=== PATIENT | male | born 1945 | race Hispanic/Latino ===

== ENCOUNTER 2018-05-06 13:05 | Inpatient (IN) | payer MEDICARE ==
[2018-05-05 16:51] LABS: BASOPHILS # (AUTO) 0.1 (0.0-0.1); BASOPHILS % 0.9 % (0.0-1.0); EOSINOPHILS # (AUTO) 0.6 (0.0-0.4); EOSINOPHILS % 6.5 % (0.0-6.0); HEMATOCRIT 39.9 % (38.2-49.6); HEMOGLOBIN 12.8 g/dL (14.0-18.0); LYMPHOCYTES # (AUTO) 2.8 (1.0-3.2); LYMPHOCYTES % 28.6 % (18.0-39.1); MEAN CORPUSCULAR HEMOGLOBIN 25.2 pg (28-32); MEAN CORPUSCULAR HGB CONC 32.1 g/dL (31-35); MEAN CORPUSCULAR VOLUME 78.5 fL (81-99); MONOCYTES # (AUTO) 0.9 (0.2-0.8); MONOCYTES % 9.1 % (4.4-11.3); NEUTROPHILS # (AUTO) 5.4 (2.1-6.9); NEUTROPHILS % 54.6 % (38.7-80.0); PLATELET COUNT 321 x10e3/uL (140-360); RED BLOOD COUNT 5.08 x10e6/uL (4.3-5.7); RED CELL DISTRIBUTION WIDTH 16.3 % (11.7-14.4)
[2018-05-05 17:08] LABS: ALBUMIN 3.3 g/dL (3.5-5.0); ALBUMIN/GLOBULIN RATIO 0.7 (0.8-2.0); ANION GAP 13.9 mmol/L (8-16); CALCIUM 9.2 mg/dL (8.4-10.2); CHOL/HDL RATIO 3.6 (3.9-4.7); CREATININE, SERUM 1.34 mg/dL (0.72-1.25); POTASSIUM 3.9 mmol/L (3.5-5.1)
[2018-05-05 21:06] VITALS: BP 189/91
[~2018-05-06] VITALS: Ht 180.3 cm; Wt 120.7 kg
[2018-05-06] VITALS (15 sets, daily range): BP systolic 169–189; BP diastolic 88–104
[~2018-05-06 13:05] MED LIST: AMLODIPINE BESYL5 MG PO; ATORVASTATIN CA40 MG PO; CRESTOR10 MG PO; DAPAGLIFLOZIN PO; DIGOXIN125 MCG PO; FENOFIBRATE160 MG PO; GLIMEPIRIDE2 MG PO; INSPRA25 MG PO; JARDIANCE PO; LEVEMIR100 UNIT/1 INJ; LISINOPRIL10 MG PO; LISINOPRIL2.5 MG PO; LYRICA75 MG PO; METFORMIN HCL500 M2 PO; METFORMIN HCL500 MG PO; METOCLOPRAMIDE10 MG PO; METOPROLOL SUCC25 MG PO; METOPROLOL TART50 MG PO; NOVOLOG100 UNIT/1 SQ; NOVOLOG100 UNITS1 INJ; OMEPRAZOLE20 M1 PO; ONGLYZA5 MG PO; PRADAXA150 MG PO; Toujeo SQ; XARELTO20 MG PO
[2018-05-06] MEDS ORDERED: DIPHENHYDRAMINE HCL 25 MG CAP ONE (16:09)
[2018-05-06] MEDS ORDERED: ALPRAZOLAM 0.5 MG TAB ONE (16:09)
[2018-05-06] MEDS ORDERED: IOPAMIDOL 370 MG/ML 200 ML INFUS..BTL INJ ONE (18:01)
[2018-05-06] MEDS ORDERED: HEPARIN SOD/SOD CHLORIDE 2,000 ML ONE (18:01)
[2018-05-06] MEDS ORDERED: LIDOCAINE HCL 2% LOCAL 20 ML VIAL ONE (18:01)
[2018-05-06] MEDS ORDERED: FENTANYL CITRATE/PF 100MCG/2 ML INJ ONE (18:06)
[2018-05-06] MEDS ORDERED: MIDAZOLAM HCL 2 MG/2 ML VIAL ONE (18:06)
[2018-05-06] MEDS ORDERED: HEPARIN SOD/SOD CHLORIDE 1,000 ML ONE (18:07)
[2018-05-06] MEDS ORDERED: SODIUM CHLORIDE 0.9% 1000ML 1,000 ML ONE ×2 (18:07→18:08)
[2018-05-06] MEDS ORDERED: NITROGLYCERIN/D5W 200 MCG/ML 250 ML ONE ×2 (18:08→18:29)
[2018-05-06] MEDS ORDERED: HEPARIN SOD (PORCINE) 1000 UNIT/ML 30ML ONE (18:08)
[2018-05-06] MEDS ORDERED: PRASUGREL 10 MG TAB ONE (18:37)
[2018-05-06] MEDS ORDERED: SODIUM CHLORIDE 0.9% 1000ML 1,000 ML IV SCH (19:03)
[2018-05-06] MEDS ORDERED: ONDANSETRON HCL INJ 2 MG/ML VIAL IV PRN (19:15)
[2018-05-06] MEDS ORDERED: ZOLPIDEM TARTRATE 5 MG TAB PO PRN (19:15)
[2018-05-06] MEDS ORDERED: HYDROCODONE/APAP 5MG-325MG TAB PO PRN (19:15)
[2018-05-06] MEDS ORDERED: HYDRALAZINE HCL 20 MG/ML VIAL IV PRN (19:15)
[2018-05-06] MEDS ORDERED: MORPHINE SULFATE 4 MG/ML SYR IV PRN (19:15)
[2018-05-06] MEDS ORDERED: ACETAMINOPHEN 325 MG TAB PO PRN (19:15)
[2018-05-06] MEDS ORDERED: MORPHINE SULFATE 2 MG/ML SYR IV PRN (19:30)
--- NOTE | 2018-05-06 19:32 | Operative Report ---
DATE OF PROCEDURE: May 06, 2018 INDICATIONS: Coronary artery disease. Abnormal stress test. Peripheral arterial disease with claudication of both lower extremities. PROCEDURES PERFORMED: 1. Abdominal aortogram runoff to bilateral lower extremities. 2. Left heart catheterization, selective coronary angiography. 3. PTCA and drug-eluding stent placement to the mid left anterior descending artery. 4. Deployment right groin Minx closure device. COMPLICATIONS: None. RECOMMENDATIONS: 1. Triple anticoagulant therapy for 3 months followed by aspirin and Xarelto for life. 2. Recommendation for staged intervention on bilateral superficial femoral arteries. Access was obtained in the right femoral artery. A 6-Irish sheath is placed. Diagnostic coronary angiogram demonstrated mild disease in the left main, left anterior descending artery, diffuse 30% to 50% stenosis. Mid left anterior descending artery the region of the diagonal artery at 50% to 60% stenosis. Ostium of the diagonal artery, however, had a 90% stenosis. This was a 1.5 mm vessel. Mid left anterior descending artery tubular 90% stenosis. Circumflex and right coronary artery had moderate 30% to 50% stenosis. Abdominal aorta and iliacs were widely patent. However, bilateral femoral arteries occluded in the distal portion. A decision was made to intervene on the left anterior descending artery. The patient received 12,000 units of heparin intravenously with an HCT of 298. The left main was cannulated using an XP 3.5 6-Irish Guidant catheter. A short wire was advanced across the lesion for support. Primary stent with a 2.25 x 12 mm [place] [employer] Synergy Standard 14 atmospheres deployed. No complications. BRANDI-3 flow. Excellent outcome. Right groin repaired using Minx closure device. Patient observed in the hospital overnight. Job#: [id number]
[2018-05-06] MEDS ORDERED: INSULIN GLARGINE SQ SCH (21:00)
[2018-05-06] MEDS ORDERED: SIMVASTATIN 40 MG TAB PO SCH (21:00)
[2018-05-06] MEDS ORDERED: METOPROLOL TARTRATE 50 MG TAB PO ONE (22:00)
[2018-05-06] MEDS ORDERED: PREGABALIN 75 MG CAP PO ONE (22:00)
[2018-05-06] MEDS ORDERED: AMLODIPINE BESYLATE 5 MG TAB PO ONE (22:00)
[2018-05-06] MEDS ORDERED: LISINOPRIL 20 MG TAB PO ONE (22:00)
[2018-05-07] VITALS: BP 185/93
[2018-05-07 04:00] VITALS: BP 167/85
[2018-05-07 06:17] LABS: BASOPHILS # (AUTO) 0.1 (0.0-0.1); BASOPHILS % 1.2 % (0.0-1.0); EOSINOPHILS # (AUTO) 0.6 (0.0-0.4); EOSINOPHILS % 6.4 % (0.0-6.0); HEMATOCRIT 40.4 % (38.2-49.6); HEMOGLOBIN 12.9 g/dL (14.0-18.0); LYMPHOCYTES # (AUTO) 2.8 (1.0-3.2); LYMPHOCYTES % 29.5 % (18.0-39.1); MEAN CORPUSCULAR HEMOGLOBIN 25.1 pg (28-32); MEAN CORPUSCULAR HGB CONC 31.9 g/dL (31-35); MEAN CORPUSCULAR VOLUME 78.8 fL (81-99); MONOCYTES # (AUTO) 0.9 (0.2-0.8); MONOCYTES % 9.4 % (4.4-11.3); NEUTROPHILS % 53.1 % (38.7-80.0); PLATELET COUNT 299 x10e3/uL (140-360); RED BLOOD COUNT 5.13 x10e6/uL (4.3-5.7); RED CELL DISTRIBUTION WIDTH 16.4 % (11.7-14.4)
[2018-05-07 06:46] LABS: ANION GAP 12.8 mmol/L (8-16); BLOOD UREA NITROGEN 19 mg/dL (7-26); BUN/CREATININE RATIO 18 (6-25); CALCIUM 8.7 mg/dL (8.4-10.2); CARBON DIOXIDE 22 mmol/L (22-29); CHLORIDE 106 mmol/L (98-107); CREATININE, SERUM 1.08 mg/dL (0.72-1.25); EST GLOMERULAR FILTRATION RATE > 60 ML/MIN (60-); GLUCOSE 157 mg/dL (74-118); POTASSIUM 3.8 mmol/L (3.5-5.1); SODIUM 137 mmol/L (136-145)
[2018-05-07 08:00] VITALS: BP 161/80
[2018-05-07] MEDS: INSULIN LISPRO 100 UNIT/1 ML 3ML VIAL SQ SCH ×2 (08:00→10:21)
[2018-05-07] MEDS ORDERED: METFORMIN HCL 500 MG TAB CR PO SCH (08:00)
[2018-05-07] MEDS ORDERED: METOCLOPRAMIDE HCL 10 MG TAB PO SCH (08:00)
[2018-05-07] MEDS ORDERED: METOPROLOL TARTRATE 50 MG TAB PO SCH (09:00)
[2018-05-07] MEDS ORDERED: PANTOPRAZOLE SOD 40 MG TABEC PO SCH (09:00)
[2018-05-07] MEDS ORDERED: PREGABALIN 75 MG CAP PO SCH (09:00)
[2018-05-07] MEDS ORDERED: AMLODIPINE BESYLATE 5 MG TAB PO SCH (09:00)
[2018-05-07] MEDS ORDERED: LISINOPRIL 10 MG TAB PO SCH (09:00)
[2018-05-07] MEDS ORDERED: LISINOPRIL 20 MG TAB PO SCH (09:00)
[2018-05-07] MEDS ORDERED: DIGOXIN 0.125 MG TAB PO SCH (09:00)
[2018-05-07] MEDS ORDERED: RIVAROXABAN 20 MG TABLET PO SCH (09:00)
[2018-05-07 09:02] VITALS: BP 161/80
[2018-05-07] MEDS ORDERED: aspirin PO (09:39)
[2018-05-07] MEDS ORDERED: CLOPIDOGREL75 MG PO (09:39)
== END 2018-05-07 10:30 | disposition home or self-care (01) | DRG 247 ==
LOC: CATH LAB 13:05 → MED/SURG 20:31
PROVIDERS: ADMIT Internal Medicine Interventional Cardiology; ATTEND Internal Medicine Interventional Cardiology
PROC: 027034Z Dilation of Coronary Artery, One Artery with Drug-eluting Intraluminal Device, Percutaneous Approach (ICD-10-PCS; principal; 2018-05-06)
PROC: 4A023N7 Measurement of Cardiac Sampling and Pressure, Left Heart, Percutaneous Approach (ICD-10-PCS; 2018-05-06)
PROC: B2111ZZ Fluoroscopy of Multiple Coronary Arteries using Low Osmolar Contrast (ICD-10-PCS; 2018-05-06)
PROC: B41D1ZZ Fluoroscopy of Aorta and Bilateral Lower Extremity Arteries using Low Osmolar Contrast (ICD-10-PCS; 2018-05-06)
DX: I70.213 Atherosclerosis of native arteries of extremities with intermittent claudication, bilateral legs (principal); I25.10 Atherosclerotic heart disease of native coronary artery without angina pectoris; I10 Essential (primary) hypertension; I48.0 Paroxysmal atrial fibrillation; Z79.01 Long term (current) use of anticoagulants
CPT/HCPCS: 36140; 36415; 75630; 77001; 80048; 80053; 80061; 82948; 85025; 93458; C1769; J1644; J2001; J2250; J7030; Q9967

== ENCOUNTER → 2018-05-19 | Day surgery (SDC) | payer MEDICARE ==
[~2018-05-19] MED LIST changes: +ALPRAZOLAM 0.5 MG TAB ONE; +CLOPIDOGREL75 MG PO; +DIPHENHYDRAMINE HCL 25 MG CAP ONE; +FENTANYL CITRATE/PF 100MCG/2 ML INJ ONE; +HEPARIN SOD (PORCINE) 1000 UNIT/ML 30ML ONE; +HEPARIN SOD/SOD CHLORIDE 2,000 ML ONE; +IOPAMIDOL 300MG/ML 100 ML INFUS..BTL IV ONE; +LIDOCAINE HCL 2% LOCAL 20 ML VIAL ONE; +MIDAZOLAM HCL 2 MG/2 ML VIAL ONE; +NITROGLYCERIN/D5W 200 MCG/ML 250 ML ONE; +PROTAMINE SULFATE 10 MG/ML 5 ML VIAL ONE; +SODIUM CHLORIDE 0.9% 1000ML 1,000 ML ONE; +SODIUM CHLORIDE 0.9% 50ML 50 ML ONE; +VERAPAMIL HCL 2.5 MG/ML 2 ML VIAL ONE; +aspirin PO
[2018-05-19 13:00] LABS: BASOPHILS # (AUTO) 0.1 (0.0-0.1); BASOPHILS % 1.1 % (0.0-1.0); EOSINOPHILS # (AUTO) 0.6 (0.0-0.4); EOSINOPHILS % 5.8 % (0.0-6.0); HEMATOCRIT 40.3 % (38.2-49.6); HEMOGLOBIN 12.8 g/dL (14.0-18.0); LYMPHOCYTES # (AUTO) 3.6 (1.0-3.2); LYMPHOCYTES % 35.1 % (18.0-39.1); MEAN CORPUSCULAR HGB CONC 31.8 g/dL (31-35); MEAN CORPUSCULAR VOLUME 78.9 fL (81-99); MONOCYTES # (AUTO) 0.9 (0.2-0.8); MONOCYTES % 8.2 % (4.4-11.3); NEUTROPHILS # (AUTO) 5.1 (2.1-6.9); NEUTROPHILS % 49.2 % (38.7-80.0); PLATELET COUNT 374 x10e3/uL (140-360); RED BLOOD COUNT 5.11 x10e6/uL (4.3-5.7); RED CELL DISTRIBUTION WIDTH 16.8 % (11.7-14.4)
[2018-05-19 13:16] LABS: ALBUMIN 3.4 g/dL (3.5-5.0); ALBUMIN/GLOBULIN RATIO 0.8 (0.8-2.0); CALCIUM 9.2 mg/dL (8.4-10.2); CREATININE, SERUM 1.37 mg/dL (0.72-1.25)
--- NOTE | 2018-05-19 15:28 | Operative Report ---
DATE OF PROCEDURE: May 19, 2018 INDICATIONS: Peripheral arterial disease with claudication. PROCEDURES PERFORMED 1. Abdominal aortogram. 2. Bilateral lower extremity angiograms. 3. Selective placement of catheter from the right femoral artery to the left superficial femoral artery. 4. Aborted left femoral artery atherectomy. 5. Deployment of right groin Angio-Seal. COMPLICATIONS: None. RECOMMENDATIONS: Referral to vascular surgeon for left fem-pop and left and right common femoral artery endarterectomy as well as right fem-pop bypass surgery. Access was obtained in the right femoral artery. Abdominal aortogram demonstrated mild disease in the abdominal aorta and iliacs bilaterally. The catheter was advanced from the right femoral artery to the left superficial femoral artery. Complete occlusion and heavily calcified lesion in the left femoral artery were noted with 3-vessel runoff. The right femoral artery was also occluded with 3-vessel runoff. Multiple attempts were made to cross the left femoral artery lesion. However, this was heavily calcified, unable to cross, and the procedure was aborted. Right groin Angio-Seal was performed. Patient was discharged home the same day. Job#: [id number]
== END | disposition home or self-care (01) ==
LOC: CATH LAB 12:31
PROVIDERS: ATTEND Internal Medicine Interventional Cardiology
DX: I70.212 Atherosclerosis of native arteries of extremities with intermittent claudication, left leg (principal); I70.92 Chronic total occlusion of artery of the extremities; I25.10 Atherosclerotic heart disease of native coronary artery without angina pectoris; Z98.61 Coronary angioplasty status; Z79.02 Long term (current) use of antithrombotics/antiplatelets; Z79.4 Long term (current) use of insulin; Z79.82 Long term (current) use of aspirin
CPT/HCPCS: 36415; 37225; 80053; 85025; C1769; C1887; J1644; J2001; J2250; J2720; J7030; Q9967; 36215

== ENCOUNTER 2022-01-19 21:29 | Emergency (ER) | payer MEDICARE ==
[~2022-01-19] VITALS: Ht 180.3 cm; Wt 120.7 kg
[~2022-01-19 21:29] MED LIST changes: -ALPRAZOLAM 0.5 MG TAB ONE; -DIPHENHYDRAMINE HCL 25 MG CAP ONE; -FENTANYL CITRATE/PF 100MCG/2 ML INJ ONE; -HEPARIN SOD (PORCINE) 1000 UNIT/ML 30ML ONE; -HEPARIN SOD/SOD CHLORIDE 2,000 ML ONE; -IOPAMIDOL 300MG/ML 100 ML INFUS..BTL IV ONE; -LIDOCAINE HCL 2% LOCAL 20 ML VIAL ONE; -MIDAZOLAM HCL 2 MG/2 ML VIAL ONE; -NITROGLYCERIN/D5W 200 MCG/ML 250 ML ONE; -PROTAMINE SULFATE 10 MG/ML 5 ML VIAL ONE; -SODIUM CHLORIDE 0.9% 1000ML 1,000 ML ONE; -SODIUM CHLORIDE 0.9% 50ML 50 ML ONE; -VERAPAMIL HCL 2.5 MG/ML 2 ML VIAL ONE
== END 2022-01-19 21:55 | disposition home or self-care (01) ==
LOC: ER 21:45
DX: S01.552A Open bite of oral cavity, initial encounter (principal); Z79.01 Long term (current) use of anticoagulants; Z79.82 Long term (current) use of aspirin; N28.9 Disorder of kidney and ureter, unspecified; G47.33 Obstructive sleep apnea (adult) (pediatric)
CPT/HCPCS: 99282

== ENCOUNTER → 2022-02-22 | Day surgery (SDC) | payer MEDICARE ==
[2022-02-19 11:41] LABS: BASOPHILS # (AUTO) 0.1 (0.0-0.1); BASOPHILS % 0.9 % (0.0-1.0); EOSINOPHILS # (AUTO) 0.8 (0.0-0.4); EOSINOPHILS % 9.2 % (0.0-6.0); HEMATOCRIT 42.9 % (38.2-49.6); HEMOGLOBIN 12.5 g/dL (14.0-18.0); LYMPHOCYTES # (AUTO) 2.9 (1.0-3.2); LYMPHOCYTES % 33.6 % (18.0-39.1); MEAN CORPUSCULAR HEMOGLOBIN 23.1 pg (28-32); MEAN CORPUSCULAR HGB CONC 29.1 g/dL (31-35); MEAN CORPUSCULAR VOLUME 79.2 fL (81-99); MONOCYTES # (AUTO) 0.8 (0.2-0.8); MONOCYTES % 9.6 % (4.4-11.3); NEUTROPHILS % 46.4 % (38.7-80.0); PLATELET COUNT 302 x10e3/uL (140-360); RED BLOOD COUNT 5.42 x10e6/uL (4.3-5.7)
[~2022-02-22] MED LIST changes: +AMPICILLIN IV ONE; +ASPIRIN81 MG PO; +FAMOTIDINE20 MG PO; +FENTANYL CITRATE/PF 100MCG/2 ML INJ ONE; +FLOMAX0.4 MG PO; +GENTAMICIN 120MG/NS 100ML 100 ML IV ONE; +HUMULIN R100 UNIT/2 SC; +METOPROLOL SUCC50 MG PO; +MIDAZOLAM HCL 2 MG/2 ML VIAL ONE; +NEURONTIN300 MG PO; +PROPOFOL IV EMULSION 10 MG/ML 20 ML VIAL ONE; +SODIUM CHLORIDE 0.9% IV ONE
[2022-02-22 10:58] VITALS: BP 141/85
== END | disposition home or self-care (01) ==
LOC: OR 07:36
PROVIDERS: ATTEND Internal Medicine Gastroenterology
DX: R19.5 Other fecal abnormalities (principal); K63.5 Polyp of colon; K29.40 Chronic atrophic gastritis without bleeding; K31.819 Angiodysplasia of stomach and duodenum without bleeding; K21.9 Gastro-esophageal reflux disease without esophagitis; K57.30 Diverticulosis of large intestine without perforation or abscess without bleeding; Z71.3 Dietary counseling and surveillance; G47.33 Obstructive sleep apnea (adult) (pediatric); D50.0 Iron deficiency anemia secondary to blood loss (chronic); E66.9 Obesity, unspecified; E11.9 Type 2 diabetes mellitus without complications; I48.20 Chronic atrial fibrillation, unspecified; I10 Essential (primary) hypertension; I25.10 Atherosclerotic heart disease of native coronary artery without angina pectoris; Z88.2 Allergy status to sulfonamides; Z01.812 Encounter for preprocedural laboratory examination; Z20.822 Contact with and (suspected) exposure to COVID-19; Z79.82 Long term (current) use of aspirin; Z79.899 Other long term (current) drug therapy; Z68.41 Body mass index [BMI] 40.0-44.9, adult; Z80.0 Family history of malignant neoplasm of digestive organs
CPT/HCPCS: 36415 ×2; 43239; 45385; 82948; 85025; J1580; J2250; J2704; J3010; U0002; 45378

== ENCOUNTER → 2025-01-07 | Day surgery (SDC) | payer MEDICARE ==
[2024-12-31 13:07] LABS: BASOPHILS # (AUTO) 0.1 (0.0-0.1); BASOPHILS % 1.1 % (0.0-1.0); EOSINOPHILS % 10.6 % (0.0-6.0); HEMOGLOBIN 16.2 g/dL (14.0-18.0); LYMPHOCYTES # (AUTO) 2.8 (1.0-3.2); LYMPHOCYTES % 30.3 % (18.0-39.1); MEAN CORPUSCULAR HEMOGLOBIN 29.3 pg (28-32); MEAN CORPUSCULAR HGB CONC 32.4 g/dL (31-35); MEAN CORPUSCULAR VOLUME 90.4 fL (81-99); MONOCYTES # (AUTO) 0.9 (0.2-0.8); MONOCYTES % 9.7 % (4.4-11.3); NEUTROPHILS # (AUTO) 4.4 (2.1-6.9); NEUTROPHILS % 47.9 % (38.7-80.0); PLATELET COUNT 254 x10e3/uL (140-360); RED BLOOD COUNT 5.53 x10e6/uL (4.3-5.7); RED CELL DISTRIBUTION WIDTH 14.5 % (11.7-14.4); WHITE BLOOD COUNT 9.25 x10e3/uL (4.8-10.8)
[2024-12-31 13:38] LABS: INR 0.96; PARTIAL THROMBOPLASTIN TIME 29.4 seconds (23.8-35.5); PROTHROMBIN TIME 13.4 seconds (11.9-14.5)
[2024-12-31 13:45] LABS: ANION GAP 15.1 mmol/L (8-16); CALCIUM 9.1 mg/dL (8.4-10.2); CREATININE, SERUM 1.66 mg/dL (0.72-1.25); POTASSIUM 4.1 mmol/L (3.5-5.1)
[~2025-01-07] MED LIST changes: -AMPICILLIN IV ONE; +ENTRESTO 49 MG1 EACH PO; -FENTANYL CITRATE/PF 100MCG/2 ML INJ ONE; -GENTAMICIN 120MG/NS 100ML 100 ML IV ONE; +LIDOCAINE HCL 2% LOCAL INJ 5 ML SDV VIAL INJ ONE; -MIDAZOLAM HCL 2 MG/2 ML VIAL ONE; +MYRBETRIQ50 MG PO; +OZEMPIC2 MG/0.75; +PLAVIX75 MG PO; -SODIUM CHLORIDE 0.9% IV ONE
[2025-01-07] MEDS: LACTATED RINGER'S 1,000 ML ONE (06:41)
[2025-01-07 08:46] VITALS: TEMP 97.8
[2025-01-07 09:10] VITALS: BP 146/88; PULSE 73; RESP 18; O2SAT 97
== END | disposition home or self-care (01) ==
LOC: OR 05:38
PROVIDERS: ATTEND Internal Medicine Gastroenterology
DX: Z09 Encounter for follow-up examination after completed treatment for conditions other than malignant neoplasm (principal); Z86.0100 Personal history of colon polyps, unspecified; Z71.3 Dietary counseling and surveillance; K57.30 Diverticulosis of large intestine without perforation or abscess without bleeding; K64.8 Other hemorrhoids; G47.33 Obstructive sleep apnea (adult) (pediatric); E11.22 Type 2 diabetes mellitus with diabetic chronic kidney disease; I12.9 Hypertensive chronic kidney disease with stage 1 through stage 4 chronic kidney disease, or unspecified chronic kidney disease; N18.1 Chronic kidney disease, stage 1; I25.10 Atherosclerotic heart disease of native coronary artery without angina pectoris; E78.5 Hyperlipidemia, unspecified; M06.9 Rheumatoid arthritis, unspecified; M19.90 Unspecified osteoarthritis, unspecified site; E66.01 Morbid (severe) obesity due to excess calories; Z88.2 Allergy status to sulfonamides; Z01.810 Encounter for preprocedural cardiovascular examination; Z01.812 Encounter for preprocedural laboratory examination; Z79.02 Long term (current) use of antithrombotics/antiplatelets; Z79.82 Long term (current) use of aspirin; Z79.4 Long term (current) use of insulin; Z79.85 Long-term (current) use of injectable non-insulin antidiabetic drugs; Z79.84 Long term (current) use of oral hypoglycemic drugs; Z79.899 Other long term (current) drug therapy; Z68.35 Body mass index [BMI] 35.0-35.9, adult; Z95.5 Presence of coronary angioplasty implant and graft; Z87.891 Personal history of nicotine dependence
CPT/HCPCS: 36415; 45378; 80048; 85025; 85610; 85730; 93005; J2003; J2704; J7121